=== PATIENT | female | born 1995 ===

== ENCOUNTER → 2017-08-10 | Emergency (ER) | payer OTHER ==
[~2017-08-10] VITALS: Ht 167.6 cm; Wt 72.6 kg
== END | disposition home or self-care (01) ==
LOC: ER 13:18
DX: B34.9 Viral infection, unspecified (principal)

== ENCOUNTER 2018-09-18 10:30 | Emergency (ER) | payer OTHER ==
[~2018-09-18] VITALS: Ht 167.6 cm; Wt 68.0 kg
== END 2018-09-18 13:59 | disposition home or self-care (01) ==
LOC: ER 10:30
DX: N39.0 Urinary tract infection, site not specified (principal); B96.29 Other Escherichia coli [E. coli] as the cause of diseases classified elsewhere; R50.9 Fever, unspecified; M54.5 Low back pain

== ENCOUNTER → 2018-12-03 | Emergency (ER) | payer OTHER ==
[~2018-12-03] VITALS: Ht 167.6 cm; Wt 71.7 kg
== END | disposition left against medical advice (07) ==
LOC: ER 12:56
DX: Z53.20 Procedure and treatment not carried out because of patient's decision for unspecified reasons (principal)

== ENCOUNTER 2018-12-07 18:30 | Emergency (ER) | payer OTHER ==
[~2018-12-07] VITALS: Ht 167.6 cm; Wt 68.0 kg
== END 2018-12-07 21:06 | disposition home or self-care (01) ==
LOC: ER 18:30
DX: J03.80 Acute tonsillitis due to other specified organisms (principal)

== ENCOUNTER 2019-09-22 07:15 | Emergency (ER) | payer OTHER ==
[~2019-09-22] VITALS: Ht 167.6 cm; Wt 68.0 kg
[2019-09-22] MEDS ORDERED: PRENATAL ONE D1 EACH (07:30)
== END 2019-09-22 10:18 | disposition home or self-care (01) ==
LOC: ER 07:15
DX: O20.8 Other hemorrhage in early pregnancy (principal)